=== PATIENT | female | born 1945 | race Caucasian/White ===

== ENCOUNTER → 2016-09-03 | Outpatient (CLI) | payer MEDICARE ==
[~2016-09-03] MED LIST: ASPI-586 PO; ATOR80TA PO; BENA10TA2 PO; CALC500T34 PO; FERR325T36 PO; FOLI1TAB6 PO; GLIP5TAB13 PO; METF-474 PO; OMG1KC PO; RANI150T15 PO
[2016-09-03 12:13] LABS: MEAN CORPUSCULAR HEMOGLOBIN 30.5 PG (26.0-34.0); MEAN CORPUSCULAR HGB CONC 34.6 g/dL (31.0-37.0); MEAN CORPUSCULAR VOLUME 88 FL (80-100); MEAN PLATELET VOLUME 10.7 FL (6.0-9.5); PLATELET COUNT 243 10^3uL (150-450); WHITE BLOOD COUNT 6.98 10^3uL (4.0-11.0)
[2016-09-03 12:15] LABS: BAND NEUTROPHILS % 0 % (0-6); EOSINOPHILS % 2 % (0-4); LYMPHOCYTES # 1.9 #; MONOCYTES # 0.1 #; MONOCYTES % 2 % (3-11); RBC MORPH NORMAL (NORMAL); SEGMENTED NEUTROPHILS % 68 % (51-67); TOTAL CELLS COUNTED 100
[2016-09-03 13:00] LABS: ALBUMIN 4.4 g/dL (3.4-5.0); ANION GAP 16.3 MEQ/L (3-15); CALCULATED IONIZED CALCIUM 4.4 mg/dL (3.8-4.6); MAGNESIUM* 1.9 mg/dL (1.6-2.3); PHOSPHORUS 3.5 mg/dL (2.4-4.9); TOTAL PROTEIN 7.1 g/dL (6.4-8.5)
--- NOTE | 2016-09-03 17:06 | Diagnostic Imaging Report ---
INDICATION: Breast cancer, postmenopausal. EXAMINATION: DEXA 09/03/2016. FINDINGS: This scan is considered normal according to [employer] guidelines. Please refer to the detailed Bone Density report faxed separately from this report. IMPRESSION: Normal bone mineralization. Dictated by: Dictated on workstation # [id number]
== END ==
LOC: RAD 11:53
PROVIDERS: ATTEND Internal Medicine Hematology & Oncology
DX: C50.212 Malignant neoplasm of upper-inner quadrant of left female breast (principal); Z78.0 Asymptomatic menopausal state
CPT/HCPCS: 36415; 77080; 80053; 82306; 83615; 83735; 84100; 85007; 85027; 86300

== ENCOUNTER → 2016-11-14 | Outpatient (CLI) | payer MEDICARE | LOC: RAD 09:53 | PROVIDERS: ATTEND Internal Medicine Hematology & Oncology | DX: C50.212 Malignant neoplasm of upper-inner quadrant of left female breast (principal) ==